=== PATIENT | female | born 1950 | race Caucasian/White ===

== ENCOUNTER → 2024-11-27 14:48 | Outpatient (REF) | payer OTHER, SELFPAY | LOC: HWWDC 14:48 | PROVIDERS: ATTENDING PHYSICIAN Internal Medicine | DX: Z00.00 Encounter for general adult medical examination without abnormal findings (principal); Z13.820 Encounter for screening for osteoporosis; Z78.0 Asymptomatic menopausal state; Z12.31 Encounter for screening mammogram for malignant neoplasm of breast | CPT/HCPCS: 77063; 77067; 77080 ==

== ENCOUNTER 2025-05-15 11:47 | Emergency (ER) | payer OTHER, SELFPAY ==
[2025-05-15] VITALS (8 sets, daily range): BP systolic 114–145; BP diastolic 67–86
[2025-05-15 12:11] LABS: Hematocrit 35.1 % (37.0-47.0); Hemoglobin 11.5 g/dL (12.0-16.0); Mean Corp Hgb Conc. 32.8 g/dL (33.0-37.0); Mean Corpuscular Volume 83.8 fL (81.0-99.0); Nucleated Red Blood Cells % 0 %; Platelet Count 233 10^3/uL (130-400); Red Cell Dist. Width 14.1 % (11.5-14.5)
[2025-05-15 12:25] LABS: ALT (SGPT) 14 U/L (0-35); AST (SGOT) 24 U/L (14-36); Albumin 4.7 g/dl (3.5-5.0); Alkaline Phosphatase 45 U/L (38-126); Blood Urea Nitrogen 19 mg/dl (7-17); Calcium 9.8 mg/dl (8.4-10.2); Carbon Dioxide 25 mmol/L (22-30); Chloride 103 mmol/L (98-107); Glucose 127 mg/dl (70-99); Lipase 140 U/L (23-300); Potassium 4.6 mmol/L (3.5-5.1); Sodium 139 mmol/L (135-145); Total Protein 7.5 g/dl (6.3-8.2); eGFR > 60.00
--- NOTE | 2025-05-15 12:28 | ED.GENMED ---
History of Present Illness
General
Chief Complaint: Chest Pain
Time Seen by Provider: 05/15/25 11:52
History of Present Illness
History of Present Illness:
74-year-old female via EMS chest pain shortness of breath diaphoresis started while she was riding a horse, states she could not sit upright, due to pain in her back no vomiting feeling better now without any movement no history of heart disease
Review of Systems
Review of Systems
All Other Systems: Not applicable
Constitutional: Denies fever or fatigue
EENT: Reports no symptoms
Respiratory: Reports no symptoms; Denies cough or trouble breathing
Cardiac: Reports diaphoresis; Denies chest pain
ABD/GI: Denies abdominal pain
: Reports no symptoms
Musculoskeletal: Reports back pain
Neurological: Reports no symptoms
Endocrine: Reports no symptoms
Hematologic/Lymphatic: Reports no symptoms
Psychiatric: Reports no symptoms
Phy Exam
Physical Exam
Physical Exam:
Physical Exam
General: no apparent distress, not acutely ill
Neck: No jaundice
Heart: s1/s2 regular rate and rhythm, no murmur. equal radial pulses.
Lungs: no acute respiratory distress. clear bilaterally
Abdomen: Nontender
Neuro: alert and oriented. no focal neurological deficits
Skin: no rash
Psychiatric: well kept. interactive and cooperative
Extremities: no edema. no calf tenderness.
Scores
Heart Score for Chest Pain Patients
STEMI patient?: No
History: Slightly or Non-Suspicious
ECG: Normal
Age: >/= 65 years
Risk Factors: 1 or 2 Risk Factors
Troponin: </= Normal Limit
Heart Score for Chest Pain Patients: 3
Heart Score Risk: 2.5% MACE over next 6 weeks
Course
Orders/Labs/Results
Orders:
Orders
05/15/25 11:52
Electrocardiogram (*1) Urgent
Reason for Study: Chest Pain
EKG- Treatment ONCE
05/15/25 12:02
Add On- LAB Urgent
Tests Added?: lipase
CT Chest/abd/pelvis Angio W/wo Urgent
Comment:
Reason For Exam: pain into back
05/15/25 12:04
Complete Blood Count/With Diff Urgent
Comprehensive Metabolic Panel Urgent
Lipase Urgent
Comment: ADD ON
Troponin I Urgent
05/15/25 14:32
Troponin I Urgent
Abnormal Lab Results
05/15/25
12:04
RBC 4.19 L 10^6/uL
(4.20-5.40)
Hgb 11.5 L g/dL
(12.0-16.0)
Hct 35.1 L %
(37.0-47.0)
MCHC 32.8 L g/dL
(33.0-37.0)
BUN 19 H mg/dl
(7-17)
Glucose 127 H mg/dl
(70-99)
05/15/25 12:04
05/15/25 12:04
Vital Signs
Initial and Last Documented VS:
Initial Vital Signs
Temp Pulse Resp BP Pulse Ox
97.9 F 71 16 139/71 98
05/15/25 11:56 05/15/25 11:56 05/15/25 11:56 05/15/25 11:56 05/15/25 11:56
Last Documented Vital Signs
Temp Pulse Resp BP Pulse Ox
98.2 F 78 16 114/67 98
05/15/25 15:51 05/15/25 14:35 05/15/25 14:35 05/15/25 15:32 05/15/25 14:35
MDM/Problems Addressed
Differential Diagnosis Includes:
Muscle strain, pancreatitis, ACS, dissection AAA
MDM/Problems Addressed:
Back pain diaphoresis
Chronic conditions affecting care:
Diabetes
Acute Exacerbation and/or Progression of Chronic Illness:
Diabetes
*Radiology
Radiology exam reviewed: radiology read reviewed
*Pulse Oximetry
SaO2: 98
Oxygen Mode of Delivery: Room air
Patient hypoxic: no
*EKG
Interpreted by ED Provider?: Yes
Interpretation: normal
Comparison EKG: no comparison EKG present
Heart Rate: 78
Rate: normal
Rhythm: sinus
Ischemia: non-specific ST changes
*Structural Draftsman Interpretation
Rate: normal
Interpretation: normal
Heart Rate: 78
Rhythm: sinus
*Critical Care Note
Total Time (30-74mins, 75-104mins- exclusive of procedures): Not Applicable
Update Note
Update Note:
2:25 PM update labs noted
CT scan noted does have age-indeterminate T10 compression fracture
Patient feeling better now, will repeat her troponin/if negative will discharge with analgesics
ED Attending Note
-
Portions of this chart may have been created with voice recognition software.� Occasional wrong word or��sound alike� substitutions may have occurred due to the inherent limitations of voice recognition software.
Discharge Plan
Departure
Patient Disposition: Home (Routine Discharge)
Date of Disposition: 05/15/25
Time of Disposition: 14:27
Patient with high blood pressure during this ER visit?: No
Condition: Good
Covid-19: Not Applicable
Discharge Problem:
Back pain
Prescriptions:
New
oxycodone 5 mg tablet
5 mg PO Q6H PRN (Reason: Pain) Qty: 10 0RF
Referrals:
Stefan Hilton MD [Family Provider, Internal Medicine] - Next open appointment
Interventions
Interventions:
*Risk Screen - Suicide Last Done: 05/15/25 11:56
*General Assessment Last Done: 05/15/25 11:56
*Neglect/Abuse Screening Last Done: 05/15/25 11:56
*ED- Fall Risk Assessment Last Done: 05/15/25 12:12
*ED COVID-19 Vaccine History Last Done: 05/15/25 12:12
*ED Influenza Vaccine History Last Done: 05/15/25 12:12
*Nursing Disposition Last Done: 05/15/25 15:51
ED- Cardiac Assessment Last Done: 05/15/25 12:56
Discharge Date and Time
Discharge Date/Time: 05/15/25 15:52
Print Language: [id number]
[2025-05-15 12:36] LABS: Troponin I < 0.012 ng/ml
[2025-05-15 15:10] LABS: Troponin I < 0.012 ng/ml
== END 2025-05-15 15:52 | disposition home or self-care (01) ==
LOC: EMR 11:47
PROVIDERS: EMERGENCY PHYSICIAN Emergency Medicine; FAMILY PHYSICIAN Internal Medicine
DX: M54.9 Dorsalgia, unspecified (principal); E11.9 Type 2 diabetes mellitus without complications; M48.54XA Collapsed vertebra, not elsewhere classified, thoracic region, initial encounter for fracture
CPT/HCPCS: 99284; 71275; 74174; 80053; 83690; 84484; 85025; 93005; Q9967